=== PATIENT | female | born 1980 | race Caucasian/White ===

== ENCOUNTER 2019-10-05 14:59 | Outpatient (CLI) ==
[2019-10-05] MEDS ORDERED: CHOL100011 PO (15:30)
[2019-10-05] MEDS ORDERED: NORE-88 PO (15:30)
[2019-10-05] MEDS ORDERED: NAPR220C2 PO (15:30)
[2019-10-05] MEDS ORDERED: DIPH25CA61 PO (15:30)
[2019-10-05] MEDS ORDERED: ACET-1600 PO (15:30)
== END 2019-10-05 23:59 | disposition home or self-care (01) ==
LOC: STAR 14:59 → EDBD 14:59 → STAR 23:59
PROVIDERS: ATTEND Obstetrics & Gynecology Female Pelvic Medicine and Reconstructive Surgery
DX: Z02.9 Encounter for administrative examinations, unspecified (principal)

== ENCOUNTER 2019-10-15 05:28 | Day surgery (SDC) | payer OTHER ==
[~2019-10-15] VITALS: Ht 167.6 cm; Wt 111.0 kg
[~2019-10-15 05:28] MED LIST: ACET-1600 PO; CHOL100011 PO; DIPH25CA61 PO; NAPR220C2 PO; NORE-88 PO
[2019-10-15 06:01] VITALS: BP 145/77
[2019-10-15] MEDS ORDERED: LACTATED RINGERS 1,000 ML IV SCH (06:03)
[2019-10-15] MEDS ORDERED: BUPIVACAINE/PF 0.25% ONE (06:38)
[2019-10-15] MEDS ORDERED: EPINEPHRINE 1 MG/ML, 1ML ONE (06:38)
[2019-10-15 06:42] LABS: AMPHETAMINE SCREEN, URINE Negative (Negative); BARBITURATE SCREEN, URINE Negative (Negative); BENZODIAZEPINE SCREEN, URINE Negative (Negative); CANNABINOID SCREEN, URINE Negative (Negative); COCAINE SCREEN, URINE Negative (Negative); METHADONE SCREEN, URINE Negative (Negative); OPIATE SCREEN, URINE Negative (Negative)
[2019-10-15] MEDS ORDERED: VANCOMYCIN 500 MG ONE (06:45)
[2019-10-15] MEDS ORDERED: GENTAMICIN 80 MG/2 ML ONE (06:45)
[2019-10-15] MEDS ORDERED: ONDANSETRON ODT 8 MG PO ONE (07:00)
[2019-10-15] MEDS ORDERED: HYDROmorphone 2 MG/ML, 1ML IVPush PRN (07:00)
[2019-10-15] MEDS ORDERED: LORazepam 2 MG/ML, 1ML IVPush PRN (07:00)
[2019-10-15] MEDS ORDERED: GABAPENTIN 300 MG CAPSULE PO ONE (07:00)
[2019-10-15] MEDS ORDERED: MEPERIDINE/PF 25MG/ML,1ML IVPush PRN (07:00)
[2019-10-15] MEDS ORDERED: SCOPOLAMINE PATCH, 1.5MG PATCH.TD72 TD ONE (07:00)
[2019-10-15] MEDS ORDERED: DIPHENHYDRAMINE 50 MG/ML, 1ML IVPush PRN (07:00)
[2019-10-15] MEDS ORDERED: hydrALAzine 20 MG/ML, 1ML IV PRN (07:00)
[2019-10-15] MEDS ORDERED: LABETALOL 5MG/ML, 20ML IV PRN (07:00)
[2019-10-15] MEDS ORDERED: FENTANYL PF 100 MCG/2ML IV PRN (07:00)
[2019-10-15] MEDS ORDERED: OXYcodone 5 MG/5 ML ORAL.SOL UDC PO PRN (07:00)
[2019-10-15] MEDS ORDERED: ONDANSETRON 2MG/ML, 2ML IV PRN (07:00)
[2019-10-15] MEDS ORDERED: ACETAMINOPHEN 500 MG TABLET PO ONE (07:00)
[2019-10-15] MEDS ORDERED: MAGNESIUM SULFATE 1 GM/2 ML ONE (07:03)
[2019-10-15] MEDS ORDERED: MIDAZOLAM 1 MG/ML, 2ML ONE (07:07)
[2019-10-15] MEDS ORDERED: LIDOCAINE-MPF 2% ,5ML ONE ×2 (07:07)
[2019-10-15] MEDS ORDERED: METOCLOPRAMIDE 5 MG/ML, 2ML ONE (07:08)
[2019-10-15] MEDS ORDERED: ROCURONIUM 10MG/ML,5ML ONE (07:09)
[2019-10-15] MEDS ORDERED: KETOROLAC 30 MG/1 ML ONE (07:09)
[2019-10-15] MEDS ORDERED: DEXAMETHASONE 4 MG/ML, 1ML ONE ×2 (07:09)
[2019-10-15] MEDS ORDERED: PROPOFOL 10 MG/ML, 20ML ONE (07:09)
[2019-10-15] MEDS ORDERED: ONDANSETRON 2MG/ML, 2ML ONE (07:09)
[2019-10-15] MEDS ORDERED: CEFAZOLIN 1,000 MG ONE ×2 (07:11)
[2019-10-15] MEDS ORDERED: FLUORESCEIN SODIUM 500 MG/5 ML ONE (08:31)
[2019-10-15] MEDS ORDERED: GLYCOPYRROLATE 0.2MG/1ML, 5ML ONE (08:39)
[2019-10-15] MEDS ORDERED: NEOSTIGMINE 1 MG/ML, 10ML ONE (08:39)
[2019-10-15] MEDS ORDERED: FENTANYL PF 100 MCG/2ML ONE (09:28)
== END 2019-10-15 11:10 | disposition home or self-care (01) ==
LOC: EDBD → OR 05:28
PROVIDERS: ATTEND Obstetrics & Gynecology Female Pelvic Medicine and Reconstructive Surgery
DX: N92.1 Excessive and frequent menstruation with irregular cycle (principal); N94.6 Dysmenorrhea, unspecified; N94.10 Unspecified dyspareunia; N81.6 Rectocele; N81.11 Cystocele, midline; N81.5 Vaginal enterocele; N81.89 Other female genital prolapse; N39.3 Stress incontinence (female) (male); N83.8 Other noninflammatory disorders of ovary, fallopian tube and broad ligament; G43.909 Migraine, unspecified, not intractable, without status migrainosus; J45.909 Unspecified asthma, uncomplicated; E78.5 Hyperlipidemia, unspecified; R10.2 Pelvic and perineal pain; Z79.899 Other long term (current) drug therapy; Z88.5 Allergy status to narcotic agent
CPT/HCPCS: 57265; 57282; 57288; 58552; 80307; 81025; 88307; C1771; J0171; J0690; J1100; J1580; J1885; J2250; J2405; J2704; J2710; J2765; J3010; J3370; J3475; J3490; J7120; Q0162